=== PATIENT | female | born 1990 | race American Indian/Alaskan Native ===

== ENCOUNTER 2018-01-05 16:29 | Emergency (ER) | payer BC ==
--- NOTE | 2018-01-05 17:36 | ED PDOC ---
HPI: Female Pain Time Seen by Provider: 01/05/18 17:11 Chief Complaint (Nursing): Female Genitourinary Chief Complaint (Provider): Bartholin's abscess History Per: Patient Onset/Duration Of Symptoms: Days (3) Additional Complaint(s): Pt sent by PMD for L sided Bartholin's abscess X 3 days. Denies fever, vaginal bleeding. Past Medical History Reviewed: Nursing Documentation, Vital Signs Vital Signs: Last Vital Signs Temp 98.0 F 01/05/18 16:36 Pulse 115 H 01/05/18 16:36 Resp 16 01/05/18 16:36 BP 102/66 01/05/18 16:36 Pulse Ox 99 01/05/18 16:36 - Medical History PMH: No Chronic Diseases - Family History Family History: States: Unknown Family Hx - Social History Current smoker - smoking cessation education provided: No Alcohol: None - Home Medications Home Medications: Ambulatory Orders Medication Instructions Recorded Acetaminophen with Codeine 1 tab PO Q6H PRN #10 tab 01/05/18 [Tylenol with Codeine No. 3 300 mg-30 mg] Ciprofloxacin [Cipro] 500 mg PO BID #13 tab 01/05/18 Naproxen [Naprosyn] 500 mg PO BID PRN #15 tablet 01/05/18 - Allergies Allergies/Adverse Reactions: Allergies Allergy/AdvReac Type Severity Reaction Status Date / Time No Known Allergies Allergy Verified 01/05/18 16:36 Review of Systems Constitutional: Negative for: Fever, Chills Gastrointestinal: Negative for: Abdominal Pain Genitourinary Female: Negative for: Dysuria, Hematuria, Vaginal Discharge, Vaginal Bleeding Skin: Negative for: Rash, Lesions Neurological: Negative for: Headache Physical Exam - Reviewed Nursing Documentation Reviewed: Yes Vital Signs Reviewed: Yes - Physical Exam Appears: Positive for: Well, No Acute Distress Skin: Positive for: Normal Color, Warm, Dry Pelvic Exam: Positive for: Mass (L labia majora). Negative for: Active Bleeding , Blood, Discharge, Ulcers - ECG O2 Sat by Pulse Oximetry: 99 - Physician Consult Information Time Consulting Physican Contacted: 17:30 Physician Contacted: Reilly Mesa Outcome Of Conversation: Will evaluate patient. Medical Decision Making Medical Decision Makin yo female with Bartholin's abscess. - Disability Representative consult Abscess I&D performed by Dr. Mesa. Disposition - Clinical Impression Clinical Impression: Bartholin's gland abscess - Disposition Referrals: Reilly Mesa DO [Staff Provider] - Virginia Recio MD [Staff Provider] - Disposition: Routine/Home Disposition Time: 18:39 Condition: STABLE Prescriptions: Acetaminophen with Codeine [Tylenol with Codeine No. 3 300 mg-30 mg] 1 tab PO Q6H PRN #10 tab PRN Reason: Pain, Severe (8-10) Ciprofloxacin [Cipro] 500 mg PO BID #13 tab Naproxen [Naprosyn] 500 mg PO BID PRN #15 tablet PRN Reason: Pain, Moderate (4-7) Instructions: Abscess Incision and Drainage, Bartholin's Gland Cyst Forms: [employer] (Tunisian), [facility] ED School/Work Excuse
--- NOTE | 2018-01-05 18:12 | CP.PCM.CON ---
<Herb Weiner - Last Filed: 01/05/18 18:54> History of Present Illness - History of Present Illness History of Present Illness: [employer] consult. 27 yo female pt w/o relevant PMH present to the ED due to vaginal pain and swelling for 3 days. Patient reports previous episodes of Bartholin's gland abscess, last one 5 years ago that required I&D. Patient denies fever, chills, n /v, no abd or pelvic pain, no vaginal discharge or urinary symptoms. Patient has been trying warm compresses w/o much improvement, no taking medicines. ROS: as per HPI PMH: denies FMH: denies NKDA [employer]KER: Bartholin's abscess x3, denies STD PSH: I&D 2013 SH: denies smoking, etoh, ilicit drugs. PE: VS: wnl : L labia mayora mass, tender, erythema appreciated. No exudates or bleeding noted. A/P: 27 yo female w/ L Bartholin's abscess. - I&D done in ER - Bartholin gland culture taken. - Tylenol PO prn for pain. - Ciprofloxacin 500 mg PO BID x 7 days. - f/u [employer]END[employer] Dr Mesa at his office. Of note: word catheter was unable to put due to incision size. Case seen and examined with Dr Mesa, [employer] hospitalist ultrasound applications specialist. Veena PGY 1. Past Patient History - Past Social History Alcohol: None - PSYCHIATRIC Hx Substance Use: No - SURGICAL HISTORY Hx Surgeries: Yes Other/Comment: barthlion cyst Meds Home Medications: Home Medication List Medication Instructions Recorded Confirmed Type Acetaminophen with Codeine 1 tab PO Q6H PRN #10 tab 01/05/18 Rx [Tylenol with Codeine No. 3 300 mg-30 mg] Ciprofloxacin [Cipro] 500 mg PO BID #13 tab 01/05/18 Rx Naproxen [Naprosyn] 500 mg PO BID PRN #15 tablet 01/05/18 Rx Allergies/Adverse Reactions: Allergies Allergy/AdvReac Type Severity Reaction Status Date / Time No Known Allergies Allergy Verified 01/05/18 16:36 Results - Vital Signs Recent Vital Signs: Last Vital Signs Temp 98.0 F 01/05/18 16:36 Pulse 115 H 01/05/18 16:36 Resp 16 01/05/18 16:36 BP 102/66 01/05/18 16:36 Pulse Ox 99 01/05/18 17:36 <Reilly Mesa - Last Filed: 01/08/18 11:33> Results - Vital Signs Recent Vital Signs: Last Vital Signs Temp 98.5 F 01/05/18 19:21 Pulse 74 01/05/18 19:21 Resp 18 01/05/18 19:21 BP 108/75 01/05/18 19:21 Pulse Ox 99 01/07/18 11:08 Assessment & Plan - Assessment and Plan (Free Text) Assessment: Bartholin abscess Plan: OB Hospitalist note: Pt seen and examied with PGY1. Agree with note ex I&D done by Word catheter placement not placed because patient was uncomfortable and procedure stopped. She felt better with drainage. She will follow in office 1-2w...precautions given JENI
[2018-01-05] MEDS ORDERED: Lidocaine 1% MPF (30 ml) Inj ONE (18:20)
[2018-01-05] MEDS ORDERED: Povidone Iodine Topical 10% Sol ONE (18:22)
[2018-01-05] MEDS ORDERED: Oxycodone/Acetaminophen 5/325 mg Tab PO STA (18:39)
[2018-01-05] MEDS ORDERED: Oxycodone/Acetaminophen 5/325 mg Tab ONE (18:55)
[2018-01-05 19:25] VITALS: BP 108/75; PULSE 74; RESP 18; TEMP 98.5
[2018-01-07 11:08] VITALS: O2SAT 99
== END 2018-01-05 19:21 | disposition home or self-care (01) ==
LOC: H.ER 16:29
DX: N75.1 Abscess of Bartholin's gland (principal)